=== PATIENT | male | born 1970 | race Caucasian/White ===

== ENCOUNTER 2022-03-06 14:51 | Outpatient (CLI) | payer OTHER, SELFPAY ==
[2022-03-06 13:37] LABS: Albumin* 4.6 g/dL (3.3-5.0)
[2022-03-06 13:38] LABS: Chloride* 103 mmol/L (96-114); Potassium* 4.3 mmol/L (3.6-5.1); Sodium* 138 mmol/L (135-149)
[2022-03-06 13:40] LABS: Aspartate Amino Transferase* 29 U/L (12-35); Bilirubin Total* 0.5 mg/dL (0.1-1.5); Blood Urea Nitrogen* 16 mg/dL (7-30); Carbon Dioxide* 27 mmol/L (20-32); Cholesterol* 185 mg/dL (90-199); Creatinine* 0.9 mg/dL (0.5-1.5); Estimated Glomerular Filt Rate 104 ml/min; Glucose* 106 mg/dL (60-115)
[2022-03-06 13:41] LABS: Alanine Aminotransferase* 31 U/L (4-50); Alkaline Phosphatase* 62 U/L (40-150); Calcium* 9.3 mg/dL (8.4-10.6); HDL Cholesterol* 41 mg/dL (>=40); LDL Cholesterol Calculated 112 mg/dL (<100); Triglycerides* 159 mg/dL (40-149)
[2022-03-06 14:11] LABS: PSA Screen* 0.49 ng/mL (0.10-4.00)
--- NOTE | 2022-04-19 13:30 | ONC.NURNOTE ---
Received referral from primary care for lymphocytosis. Discussed patient with Dr. Preciado and the following was recommended: 1. Flow cytometry 2. Peripheral blood smear 3. CT CAP for lymphadenopathy Pending results, patient would be seen or RTC in July with a CBC, CMP, and LDH
== END 2022-03-06 14:52 | disposition home or self-care (01) ==
PROVIDERS: PCP Family Medicine; Visit Provider Family Medicine
DX: E78.5 Hyperlipidemia, unspecified (principal); R73.03 Prediabetes; E55.9 Vitamin D deficiency, unspecified; E66.9 Obesity, unspecified; Z12.5 Encounter for screening for malignant neoplasm of prostate
CPT/HCPCS: 80053; 80061; 84153

== ENCOUNTER 2022-05-03 09:14 | Outpatient (CLI) | payer OTHER, SELFPAY ==
--- NOTE | 2022-05-03 10:00 | CRLHL7_ITS ---
For Patients: As a result of the Century Cures Act, medical imaging exams and procedure reports are released immediately into your electronic medical record. You may view this report before your referring provider. If you have questions, please contact your health care provider. Indication: lymphocytosis Technique: Postcontrast CT chest, abdomen and pelvis. 122 cc Isovue 370 intravenous contrast. Please note that all CT scans at this facility use dose modulation, iterative reconstruction, and/or weight-based dosing when appropriate to reduce radiation dose to as low as reasonably achievable. Comparison: None Findings: In the chest, there is a nodule within the right upper lobe adjacent to the fissure measuring 5.8 millimeters, 4/46. Mild dependent atelectasis. No pleural effusion. No infiltrate. No edema. No pneumothorax. No mediastinal, hilar or axillary adenopathy. No aortic dissection or pulmonary embolism. Mild degenerative changes in the upper thoracic spine. No evidence of acute fracture. No suspicious osseous lesion. In the abdomen, there is no suspicious intrahepatic mass. A 6 millimeter simple cyst is present within the left hepatic lobe. The gallbladder is normal. No calcified gallstones. No biliary obstruction. Normal pancreas. Spleen normal. Normal adrenal glands. No solid renal mass or hydronephrosis. Small simple cortical cysts are present bilaterally measuring up to 8.3 millimeters. No enlarged retroperitoneal lymph nodes. Few scattered subcentimeter mesenteric lymph nodes are present with faint mesenteric fat stranding compatible with incidental mild mesenteric panniculitis. The stomach appears normal. Normal appearance of the small bowel. In the pelvis, the bladder is normal. The prostate is not enlarged. No bowel obstruction or free air. No free fluid. Mild diverticulosis. No diverticulitis. No abdominal wall hernia. No inguinal or pelvic adenopathy. The ureters are normal. Degenerative disc disease at L5-S1. No fracture. Impression: No suspicious intrathoracic, intra-abdominal or intrapelvic lymph nodes. Mild incidental mesenteric panniculitis. 5.8 millimeter pleural-based nodule within the right upper lobe considered benign. Please note that all CT scans at this facility use dose modulation, iterative reconstruction, and/or weight-based dosing when appropriate to reduce radiation dose to as low as reasonably achievable. Dictated by Adrián Hale MD @ 05/03/2022 1:59:57 PM (Electronically Signed)
--- NOTE | 2022-05-03 10:00 | CRLHL7_ITS ---
For Patients: As a result of the Century Cures Act, medical imaging exams and procedure reports are released immediately into your electronic medical record. You may view this report before your referring provider. If you have questions, please contact your health care provider. INDICATION: Sinus drainage. TECHNIQUE: Noncontrast CT images acquired through the paranasal sinuses. COMPARISON: None. FINDINGS: No air-fluid levels to suggest acute tear sinusitis. Mild mucosal thickening in the maxillary sinuses. The ethmoid infundibula are widely patent. Mild mucosal thickening in the frontal recesses. The frontal sinuses are otherwise clear. Minimal mucosal thickening in the ethmoid air cells. Minimal mucosal thickening in the sphenoid sinuses. The left sphenoethmoidal recess is patent. The right sphenoethmoidal recess is opacified. Mild sinusoidal nasal septal deviation with slight leftward deviation of the anterior septum and minimal rightward bowing of the posterior septum. No nasal cavity masses. The mastoid air cells are clear. IMPRESSION: 1. Mild mucosal thickening in the maxillary sinuses. There is otherwise minimal paranasal sinus mucosal disease. No air-fluid levels to suggest acute sinusitis. 2. Mild sinusoidal nasal septal deviation. Please note that all CT scans at this facility use dose modulation, iterative reconstruction, and/or weight-based dosing when appropriate to reduce radiation dose to as low as reasonably achievable. Dictated by Eliazar Lambert MD @ 05/03/2022 7:40:56 PM (Electronically Signed)
== END 2022-05-03 09:15 | disposition home or self-care (01) ==
LOC: CT 09:14
PROVIDERS: PCP Family Medicine; Visit Provider Family Medicine
DX: D72.820 Lymphocytosis (symptomatic) (principal); J30.89 Other allergic rhinitis; J32.0 Chronic maxillary sinusitis; J34.2 Deviated nasal septum; K65.4 Sclerosing mesenteritis
CPT/HCPCS: 70486; 71260; 74177; Q9967

== ENCOUNTER 2023-03-07 08:22 | Outpatient (CLI) | payer OTHER, SELFPAY | END 2023-03-07 08:23 | disposition home or self-care (01) | LOC: LKVREF 08:44 | PROVIDERS: PCP Family Medicine; Visit Provider Internal Medicine Hematology & Oncology | DX: Z00.00 Encounter for general adult medical examination without abnormal findings (principal); E78.5 Hyperlipidemia, unspecified; R73.03 Prediabetes; E55.9 Vitamin D deficiency, unspecified; E66.9 Obesity, unspecified; Z12.5 Encounter for screening for malignant neoplasm of prostate | CPT/HCPCS: 80053; 80061; 84153 ==

== ENCOUNTER 2023-03-08 13:16 | Outpatient (RCR) | payer OTHER, SELFPAY | END 2023-09-04 23:59 | disposition home or self-care (01) | LOC: CCIC 13:16 | PROVIDERS: PCP Family Medicine; Visit Provider Internal Medicine Hematology & Oncology | DX: D72.820 Lymphocytosis (symptomatic) (principal) | CPT/HCPCS: 85025; 99212; 99213; 99214 ==

== ENCOUNTER 2023-08-28 10:37 | Outpatient (CLI) | payer OTHER, SELFPAY ==
--- NOTE | 2023-08-28 11:00 | CT_ITS ---
Patient: SHU JAMES Facility:?[facility] Patient ID:?[id number] Site Patient ID:?[id number]. Site :?[id number] Study:?CT-Chest WITHOUT-08/28/2023 11:07:21 AM Ordering Physician:?DR. WHITE Final Report: Indication: Pulmonary nodule Technique: Noncontrast CT chest Please note that all CT scans at this facility use dose modulation, iterative reconstruction, and/or weight-based dosing when appropriate to reduce radiation dose to as low as reasonably achievable. Comparison: 05/03/2022 Findings: The visualized thyroid is within normal limits. No adenopathy in the mediastinum, natalie or axilla. Mild atherosclerotic changes in the aorta. Calcifications within the left anterior descending coronary artery. Visualized upper abdomen is unremarkable. Similar appearance of the T3 vertebral body superior endplate. No infiltrate or edema. No effusion or pneumothorax. Mild dependent atelectasis within the right lower lobe. Stable 5 millimeter nodule associated with the minor fissure, series 3, image 43. Impression: Stable 5 millimeter pleural-based nodule on the right. No adenopathy. Please note that all CT scans at this facility use dose modulation, iterative reconstruction, and/or weight-based dosing when appropriate to reduce radiation dose to as low as reasonably achievable. Dictated by Adrián Hale MD @ 08/28/2023 11:52:41 AM Signed by:?Adrián Hale MD @08/28/2023 11:52:41 AM (Electronic Signature)
== END 2023-08-28 10:38 | disposition home or self-care (01) ==
PROVIDERS: PCP Family Medicine; Visit Provider Internal Medicine Hematology & Oncology
DX: R91.1 Solitary pulmonary nodule (principal)
CPT/HCPCS: 71250

== ENCOUNTER 2024-02-05 09:05 | Outpatient (CLI) | payer OTHER, SELFPAY | END 2024-02-05 09:06 | disposition home or self-care (01) | PROVIDERS: PCP Family Medicine; Visit Provider Family Medicine | DX: E78.5 Hyperlipidemia, unspecified (principal); I25.10 Atherosclerotic heart disease of native coronary artery without angina pectoris; R53.83 Other fatigue; L65.9 Nonscarring hair loss, unspecified; Z12.5 Encounter for screening for malignant neoplasm of prostate | CPT/HCPCS: 80053; 80061; 84270; 84402; 84403; 84443; G0103 ==

== ENCOUNTER 2024-03-27 14:31 | Outpatient (RCR) | payer OTHER, SELFPAY | END 2024-09-23 23:59 | disposition home or self-care (01) | LOC: CCIC 14:31 | PROVIDERS: PCP Family Medicine; Visit Provider Internal Medicine Hematology & Oncology | DX: D72.820 Lymphocytosis (symptomatic) (principal) | CPT/HCPCS: 99212; 99213; G0463 ==

== ENCOUNTER 2025-04-15 15:19 | Outpatient (CLI) | payer OTHER, SELFPAY | END 2025-04-15 15:20 | disposition home or self-care (01) | LOC: NFLDREF 15:20 | PROVIDERS: PCP Family Medicine; Visit Provider Internal Medicine | DX: E78.5 Hyperlipidemia, unspecified (principal) | CPT/HCPCS: 84403 ==